=== PATIENT | female | born 1940 | race Caucasian/White ===

== ENCOUNTER 2017-07-30 18:00 | Inpatient (IN) | payer MEDICARE, BC, OTHER ==
[~2017-07-30] VITALS: Ht 165.1 cm; Wt 70.1 kg
[2017-07-30] MEDS ORDERED: SUMA25TA3 PO (18:17)
[2017-07-30] MEDS ORDERED: PROP1TAB29 PO (18:17)
[2017-07-30] MEDS ORDERED: VITA-182 PO (18:17)
[2017-07-30] MEDS ORDERED: MULT1TAB8 PO (18:17)
[2017-07-30] MEDS ORDERED: VITA100072 PO (18:17)
[2017-07-30] MEDS ORDERED: TRIAMT/HCTZ (18:17)
[2017-07-30] MEDS: PROPRANOLOL 20 MG TAB PO SCH (21:00)
--- NOTE | 2017-07-30 21:20 | REPUSA ---
HISTORY: BILAT HIP PAIN. TECHNIQUE: Axial CT imaging of pelvis with sagittal and coronal reformatted imaging, without contrast . DLP= 679.3 mGy-cm. FINDINGS: The examination demonstrates fractures at the right symphysis pubis involving the medial pu bic ramus and medial ischial ramus. No dislocation is seen. Bilateral hip prostheses are in place without evidence of loosening. End no other hip fracture is se en. No significant hematoma, or mass is seen in the pelvis. IMPRESSION: 1. Focal nondisplaced fractures in the right medial pubic and ischial rami at the symphy sis pubis, without dislocation seen. 2. Satisfactory appearance of bilateral hip prostheses with no hip fracture seen. 3. No significant hemorrhagic complication or soft tissue masses seen.
[2017-07-30] MEDS ORDERED: ACETAMINOPHEN TAB 650MG DOSE (2X325MG) PO ONE (22:00)
[2017-07-30] MEDS ORDERED: NS 500 ML IV ONE (23:00)
[2017-07-30 23:22] LABS: BASO % 0.3 % (0.0-1.0); EOS # 0.1 10^3/uL (0.0-0.50); EOS % 0.6 % (0.0-3.0); IMMATURE GRANULOCYTE % 0.4 % (0-0); LYMPH # 1.6 10^3/uL (1.5-4.5); LYMPH % 16.1 % (24.0-44.0); MEAN CORPUSCULAR HEMOGLOBIN 29.2 pg (27.0-33.0); MEAN CORPUSCULAR HGB CONC 34.9 g/dl (32.0-36.5); MEAN CORPUSCULAR VOLUME 83.6 fl (80.0-96.0); MONO # 0.6 10^3/uL (0.0-0.8); MONO % 5.5 % (0.0-5.0); NEUTROPHILS # 7.9 10^3/uL (1.8-7.7); NEUTROPHILS % 77.1 % (36.0-66.0); PLATELET COUNT, AUTOMATED 233 10^3/uL (150-450); RED CELL DISTRIBUTION WIDTH 14.4 % (11.5-14.5); WHITE BLOOD COUNT 10.2 10^3/uL (4.0-10.0)
[2017-07-30 23:30] LABS: ANION GAP 9 MEQ/L (8-16); BLOOD UREA NITROGEN 7 MG/DL (7-18); CALCIUM LEVEL 8.9 MG/DL (8.8-10.2); CARBON DIOXIDE LEVEL 28 MEQ/L (21-32); CHLORIDE LEVEL 97 MEQ/L (98-107); CREATININE FOR GFR 0.74 MG/DL (0.55-1.02); GLOMERULAR FILTRATION RATE > 60.0 (>39); GLUCOSE, FASTING 128 MG/DL (83-110); POTASSIUM SERUM 3.4 MEQ/L (3.5-5.1); SODIUM LEVEL 134 MEQ/L (136-145)
[2017-07-30] MEDS ORDERED: ONDANSETRON 4MG/2ML VIAL (J2405) IV PRN (23:45)
[2017-07-31] VITALS (7 sets, daily range): BP systolic 99–137; BP diastolic 54–69
[2017-07-31] MEDS ORDERED: FEVE380C PO (00:15)
[2017-07-31] MEDS ORDERED: TRIA37.53 PO (00:15)
[2017-07-31] MEDS ORDERED: ARTISOL2 OU (00:15)
[2017-07-31] MEDS ORDERED: VITMTA PO (00:15)
[2017-07-31] MEDS: PERCOCET 5MG/325MG TAB PO PRN ×2 (00:28→21:16)
[2017-07-31] MEDS ORDERED: SUMAtriptan SUCCINATE 25 MG TAB PO PRN (00:30)
[2017-07-31] MEDS ORDERED: POLYVINYL ALCOHOL OPHTH SOLN 15 ML(LIQUITEARS) OU PRN (00:30)
[2017-07-31] MEDS ORDERED: POTASSIUM CHLORIDE 10 MEQ SR TABLET PO ONE (00:30)
--- NOTE | 2017-07-31 01:26 | HPEPDOC ---
General Date of Admission Jul 30, 2017 at 18:01 Attending Physician: SARA MIN MD Chief Complaint The patient is a 77-year-old female admitted with a reason for visit of Syncope. Source: Patient History of Present Illness 77-year-old female with past medical history of hypertension and migraine headaches presented to the ER after she had a mechanical fall. The patient states that she was going down a set of stairs into a garage, when she missed the second last step of the stairs and fell onto her left side. The patient states that she did not have any prodromal symptoms of lightheadedness, dizziness, chest pain, palpitations, abdominal pain, or symptoms of syncope prior to her fall. The patient subsequently presented to the ER for further evaluation. In the ER, imaging revealed focal nondisplaced fractures in the right medial pubic and ischial rami at the symphysis pubis, without dislocation seen. The Orthopedic service was contacted by the ER, and it was recommended that the patient be discharged home and follow-up as an outpatient with orthopedic surgery. However, when the patient got up from the edge of bed and was using the crutches, she had a near syncopal event. According to staff, this only lasted a few seconds, and the patient subsequently awoke with no acute neurological findings. An EKG revealed sinus rhythm with a left bundle branch block which the patient states that she has had for years. She denied any acute complaints of shortness of breath, chest pain, or palpitations. The patient will be admitted to the hospitalist service for observation of syncopal event. Home Medications Scheduled Cholecalciferol (Vitamin D3) 1,000 Unit Cap, 1,000 UNIT PO DAILY, (Reported) Cyanocobalamin (Vitamin B12) 1,000 Mcg Tab, 1,000 MCG PO DAILY, (Reported) Feverfew (Tanacetum Parthenium (Feverfew) 380 Mg Cap, 380 MG PO DAILY, (Reported ) Hydrochlorothiazide W/Triamter (Triamterene/Hydrochloroth 37.5-25 mg) 1 Cap Cap , 1 CAP PO DAILY, (Reported) Multivitamins *SMC STOCKED* (Thera M Plus *SMC STOCKED*) 1 Tab Tab, 1 TAB PO DAILY, (Reported) Propranolol HCl (Propranolol HCl) 20 Mg Tab, 20 MG PO QHS, (Reported) Scheduled PRN Artificial Tears (Artificial Tears 0.1-0.3 %) 1 Sera Sera, 1 DROP OU BID PRN for DRY EYES, (Reported) Sumatriptan Succinate (Sumatriptan Succinate) 25 Mg Tab, 25 MG PO DAILY PRN for MIGRAINE, (Reported) Allergies Coded Allergies: Ciprofloxacin (Verified Allergy, Unknown, 07/30/17) Past Medical History Medical History As noted in HPI. Surgical History Bilateral hip replacement, right shoulder repair, right knee repair, hysterectomy, appendectomy, and tonsillectomy. Family History Significant Family History: No pertinent family hx Social History * Smoker: Denies Alcohol: rarely Drugs: denies Lives at home by herself, ambulates without any assistive devices, is functionally independent at baseline. Review of Symptoms Other systems 10 point review of systems negative unless otherwise specified in HPI. Physical Examination General Exam: Positive: Alert, Cooperative, No Acute Distress ENT Exam: Positive: Atraumatic, Mucous membr. moist/pink Neck Exam: Negative: JVD Chest Exam: Positive: Clear to auscultation, Normal air movement Heart Exam: Positive: Rate Normal, Normal S1, Normal S2 Abdomen Exam: Positive: Soft, Negative: Tenderness Extremity Exam: Positive: Other (mild tenderness to palpation along the contusion on the lateral side of the left leg. Range of motion intact in both hip and knee joints.) Psych Exam: Positive: Oriented x 3 Vital Signs Vital Signs Date Time Temp Pulse Resp B/P (MAP) Pulse Ox O2 Delivery O2 Flow Rate FiO2 07/31/17 00:45 50 16 98 Room Air 07/31/17 00:42 135/64 (87) 07/30/17 18:12 97.6 Laboratory Data Labs 24H Laboratory Tests 2 07/30/17 23:03: Immature Granulocyte % (Auto) 0.4H, White Blood Count 10.2H, Red Blood Count 4.52, Hemoglobin 13.2, Hematocrit 37.8, Mean Corpuscular Volume 83.6, Mean Corpuscular Hemoglobin 29.2, Mean Corpuscular Hemoglobin Concent 34.9, Red Cell Distribution Width 14.4, Platelet Count 233, Neutrophils (%) (Auto) 77.1H, Lymphocytes (%) (Auto) 16.1L, Monocytes (%) (Auto) 5.5H, Eosinophils (%) (Auto) 0.6, Basophils (%) (Auto) 0.3, Neutrophils # (Auto) 7.9H, Lymphocytes # (Auto) 1.6, Monocytes # (Auto) 0.6, Eosinophils # (Auto) 0.1, Basophils # (Auto) 0.0, Immature Granulocyte # (Auto) 0.0, Nucleated Red Blood Cells % (auto) 0.0, Anion Gap 9, Glomerular Filtration Rate > 60.0, Blood Urea Nitrogen 7, Creatinine 0.74, Sodium Level 134L, Potassium Level 3.4L, Chloride Level 97L, Carbon Dioxide Level 28, Calcium Level 8.9 07/30/17 23:11: Bedside Glucose (Misc Panel) 125H CBC/BMP Laboratory Tests 07/30/17 23:03 Red Blood Count 4.52, Mean Corpuscular Volume 83.6, Mean Corpuscular Hemoglobin 29.2, Mean Corpuscular Hemoglobin Concent 34.9, Red Cell Distribution Width 14.4 , Neutrophils (%) (Auto) 77.1 H, Lymphocytes (%) (Auto) 16.1 L, Monocytes (%) ( Auto) 5.5 H, Eosinophils (%) (Auto) 0.6, Basophils (%) (Auto) 0.3, Neutrophils # (Auto) 7.9 H, Lymphocytes # (Auto) 1.6, Monocytes # (Auto) 0.6, Eosinophils # (Auto) 0.1, Basophils # (Auto) 0.0, Calcium Level 8.9 Plan / VTE VTE Prophylaxis Ordered?: Yes Plan Plan Near Syncopal Event likely 2/2 Vasovagal Syncope We will admit to observe on Telemetry EKG notable for NSR with LBBB, no priors available for comparison We will obtain serial troponin markers Orthostatic vitals ordered Pelvic Fracture 2/2 Mechanical Fall No surgical intervention indicated as per Ortho Analgesic medication ordered PT ordered HTN, stable Cont Triamterene/HCTZ Hx of Migraine Headaches Cont current regimen DVT Prophylaxis Lovenox SC The patient will be admitted under the service of Dr. Min, who will begin to follow the patient on 07/31/17 at 7 AM. VALENTINA LANDA MD Jul 31, 2017 01:26
[2017-07-31] MEDS ORDERED: SLF 3 ML SYR IV PRN (04:30)
[2017-07-31] MEDS: SLF 3 ML SYR IV SCH ×3 (05:17→21:16)
[2017-07-31] MEDS: ACETAMINOPHEN TAB 650MG DOSE (2X325MG) PO PRN ×3 (07:27→16:43)
--- NOTE | 2017-07-31 08:12 | ECGEPIP ---
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
[2017-07-31] MEDS: MULTIVITAMINS/MINERALS THERAP 1 TAB PO SCH (09:00)
--- NOTE | 2017-07-31 09:17 | REP ---
AP pelvis: Comparison is the CT of the pelvis earlier this same date. On the comparison CT there is a nondisplaced fracture of the pubic symphysis on the right. This is barely visible on the plain film study and is nondisplaced. No other pelvic fractures are identified. Sacroiliac articulations are unremarkable. There are bilateral total hip arthroplasties. Signed by Jessee Astorga MD 07/31/2017 07:55 A
--- NOTE | 2017-07-31 09:17 | REP ---
Right hip two views: There is no fracture or dislocation. There is a total hip arthroplasty. No calcifications or foreign bodies. On a CT of the pelvis later this same date. There is a nondisplaced fracture of the pubic symphysis on the right. This is not visible on the plain film study of the hip. No Signed by Jessee Astorga MD 07/31/2017 07:56 A
[2017-07-31] MEDS: CYANOCOBALAMIN 500 MCG TAB PO SCH (09:33)
[2017-07-31] MEDS: VITAMIN D 1,000 INTERNATIONAL UNITS TABLET PO SCH (09:33)
[2017-07-31] MEDS: DYAZIDE 37.5/25 CAP (TRIAM/HCTZ) PO SCH (09:33)
[2017-07-31] MEDS: ENOXAPARIN 30 MG/0.3 ML SYR (J1650) SC SCH (09:34)
--- NOTE | 2017-07-31 10:19 | IPNPDOC ---
Text Note Date of Service The patient was seen on 07/31/17. NOTE Subjective: No complaints overnight except for some hip pain. denies any dizziness or light headedness, however orthostatic bps were positive Physical exam: Vitals : As below. General Exam: Positive: Alert, Cooperative, No Acute Distress ENT Exam: Positive: Atraumatic, Mucous membr. moist/pink Neck Exam: Negative: JVD Chest Exam: Positive: Clear to auscultation, Normal air movement Heart Exam: Positive: Rate Normal, Normal S1, Normal S2, systolic murmur. Abdomen Exam: Positive: Soft, Negative: Tenderness Extremity Exam: Positive: Other (mild tenderness to palpation along the contusion on the lateral side of the left leg. Range of motion intact in both hip and knee joints.) Psych Exam: Positive: Oriented x 3 Labs and radiology : As below. Assessment and Plan: 77 yr old female with non displaced fractures of the right pubic and ischeal rami after a mechanical fall was admitted to the hospital for a presyncopal event in the ED. Presyncope: likely 2/2 Vasovagal Syncope However orthostatic bps are also positive . will give 500 cc ivf. Telemetry does not show any arrhythmias EKG notable for NSR with LBBB, no priors available for comparison serial troponin markers echo. Pelvic Fracture 2/2 Mechanical Fall No surgical intervention indicated as per Ortho Analgesic medication ordered PT ordered HTN, stable Cont Triamterene/HCTZ Hx of Migraine Headaches Cont current regimen DVT Prophylaxis Lovenox SC VS,Fishbone, I+O VS, Fishbone, I+O Laboratory Tests 07/30/17 23:03 Red Blood Count 4.52, Mean Corpuscular Volume 83.6, Mean Corpuscular Hemoglobin 29.2, Mean Corpuscular Hemoglobin Concent 34.9, Red Cell Distribution Width 14.4 , Neutrophils (%) (Auto) 77.1 H, Lymphocytes (%) (Auto) 16.1 L, Monocytes (%) ( Auto) 5.5 H, Eosinophils (%) (Auto) 0.6, Basophils (%) (Auto) 0.3, Neutrophils # (Auto) 7.9 H, Lymphocytes # (Auto) 1.6, Monocytes # (Auto) 0.6, Eosinophils # (Auto) 0.1, Basophils # (Auto) 0.0, Calcium Level 8.9, Total Creatine Kinase 130 Vital Signs Date Time Temp Pulse Resp B/P (MAP) Pulse Ox O2 Delivery O2 Flow Rate FiO2 07/31/17 05:17 20 07/31/17 04:44 98.7 69 124/64 (84) 98 Room Air SARA PRESCOTT MD Jul 31, 2017 06:11
[2017-07-31] MEDS ORDERED: SODIUM CHLORIDE 0.9% 1000 ML IV ONE (10:30)
[2017-07-31] MEDS: PROPRANOLOL 20 MG TAB PO SCH (21:12)
[2017-07-31] MEDS: DOCUSATE SODIUM 100 MG CAP PO SCH (21:13)
[2017-08-01] VITALS (10 sets, daily range): BP systolic 101–138; BP diastolic 55–72
--- NOTE | 2017-08-01 05:46 | ECHO ---
DATE OF PROCEDURE: 07/31/2017 REFERRING PHYSICIAN: Dr. Juana Min. INDICATION: Syncope and heart murmur. Patient has left bundle branch block. HEIGHT: 65 inches. WEIGHT: 154 pounds. DIMENSIONS: IVS: 1.0 LV: 45.1 LVPW: 1.2 LA: 2.5 Aorta: 2.7 FINDINGS: The study is of fair technical quality with difficult visualization. Left ventricle is of normal size and overall hyperdynamic contractility. I do not appreciate a typical septal wall motion abnormality associated with left bundle branch block. Right ventricle does not appear enlarged. Both atria appear grossly normal but the visualization was poor. There appears to be an echodensity in left atrium that was very poorly seen. I cannot rule out that this is just an artifact caused by intense shadowing of heavily calcified mitral valve but it potentially could represent also left atrial thrombus or mass. Aortic valve is tricuspid. There are some calcifications, but no significant restriction of cusp mobility. There are heavy calcification in the mitral valve itself and also at the mitral annulus. I cannot comment on mobility of the leaflets. Tricuspid valve appears normal. Pulmonic valve was not well seen. No pericardial effusion is noted. Inferior vena cava is normal size. Aortic root, aortic arch and abdominal aorta appear normal. Doppler interrogation of aortic valve reveals minimal stenosis (mean gradient 9 mmHg) and mild to moderate insufficiency. Pressure half-time of AI jet is 570 milliseconds. There is no significant mitral insufficiency, but there is mild mitral stenosis. Peak gradient across the valve is 10 and mean gradient 4 mmHg. There is trace tricuspid insufficiency. Calculated pulmonary artery pressure is in 30s corresponding to mild pulmonary hypertension. Mitral inflow pattern and tissue Doppler imaging of mitral annulus reveal grade 1 diastolic dysfunction. CONCLUSIONS: 1. Study is of fair technical quality. 2. Normal LV size with normal LV systolic function and grade 1 diastolic dysfunction. 3. Very prominent aortic sclerosis with trivial stenosis and mild to moderate insufficiency. 4. Heavily calcified mitral valve with limited visualization of the leaflet themselves and functionally no significant insufficiency and mild stenosis. 5. Normal central venous pressure and likely mild pulmonary hypertension. 6. Poorly visualized mass in left atrium. Cannot completely rule out that this represents artifact caused by prominent mitral calcifications. COMMENTS: Subacute bacterial endocarditis (SBE) prophylaxis not recommended. Depending on the patient's condition, I would advocate to pursue transesophageal echocardiogram to have a better look at left atrium. [facility]
[2017-08-01] MEDS: SLF 3 ML SYR IV SCH ×3 (05:57→21:08)
[2017-08-01] MEDS: ACETAMINOPHEN TAB 650MG DOSE (2X325MG) PO PRN (05:58)
[2017-08-01] MEDS: MULTIVITAMINS/MINERALS THERAP 1 TAB PO SCH (08:08)
[2017-08-01] MEDS: ENOXAPARIN 30 MG/0.3 ML SYR (J1650) SC SCH (09:22)
[2017-08-01] MEDS: VITAMIN D 1,000 INTERNATIONAL UNITS TABLET PO SCH (09:22)
[2017-08-01] MEDS: DOCUSATE SODIUM 100 MG CAP PO SCH ×2 (09:22→21:07)
[2017-08-01] MEDS: CYANOCOBALAMIN 500 MCG TAB PO SCH (09:22)
[2017-08-01 09:35] LABS: MEAN CORPUSCULAR HEMOGLOBIN 28.5 pg (27.0-33.0); MEAN CORPUSCULAR HGB CONC 33.3 g/dl (32.0-36.5); MEAN CORPUSCULAR VOLUME 85.4 fl (80.0-96.0); PLATELET COUNT, AUTOMATED 184 10^3/uL (150-450); RED CELL DISTRIBUTION WIDTH 14.6 % (11.5-14.5); WHITE BLOOD COUNT 7.4 10^3/uL (4.0-10.0)
[2017-08-01 09:57] LABS: ANION GAP 6 MEQ/L (8-16); BLOOD UREA NITROGEN 7 MG/DL (7-18); CALCIUM LEVEL 8.8 MG/DL (8.8-10.2); CARBON DIOXIDE LEVEL 30 MEQ/L (21-32); CHLORIDE LEVEL 97 MEQ/L (98-107); GLOMERULAR FILTRATION RATE > 60.0 (>39); GLUCOSE, FASTING 105 MG/DL (83-110); POTASSIUM SERUM 3.7 MEQ/L (3.5-5.1); SODIUM LEVEL 133 MEQ/L (136-145)
[2017-08-01] MEDS: PERCOCET 5MG/325MG TAB PO PRN ×2 (11:03→21:13)
--- NOTE | 2017-08-01 11:41 | IPNPDOC ---
Text Note Date of Service The patient was seen on 08/01/17. NOTE Subjective: No complaints overnight except for some hip pain. denies any dizziness or light headedness, orthostatic bps were negative this am , TTE showed abnormality so will need DARLIN Physical exam: Vitals : As below. General Exam: Positive: Alert, Cooperative, No Acute Distress ENT Exam: Positive: Atraumatic, Mucous membr. moist/pink Neck Exam: Negative: JVD Chest Exam: Positive: Clear to auscultation, Normal air movement Heart Exam: Positive: Rate Normal, Normal S1, Normal S2, systolic murmur. Abdomen Exam: Positive: Soft, Negative: Tenderness Extremity Exam: Positive: Other (mild tenderness to palpation along the contusion on the lateral side of the left leg. Range of motion intact in both hip and knee joints.) Psych Exam: Positive: Oriented x 3 Labs and radiology : As below. Assessment and Plan: 77 yr old female with non displaced fractures of the right pubic and ischeal rami after a mechanical fall was admitted to the hospital for a presyncopal event in the ED. Presyncope: due to orthostatic hypotension and possible vasovagal syncope.However has an abnormal TTE. Telemetry does not show any arrhythmias EKG notable for NSR with LBBB, no priors available for comparison serial troponin markers negative echo showed possible mass in left atrium will need DARLIN. Have spoken with Dr Lanier. Pelvic Fracture 2/2 Mechanical Fall No surgical intervention indicated as per Ortho Analgesic medication ordered PT ordered HTN, stable Cont Triamterene/HCTZ Hx of Migraine Headaches Cont current regimen DVT Prophylaxis Lovenox SC VS,Fishbone, I+O VS, Fishbone, I+O Laboratory Tests 08/01/17 09:23 Red Blood Count 4.11, Mean Corpuscular Volume 85.4, Mean Corpuscular Hemoglobin 28.5, Mean Corpuscular Hemoglobin Concent 33.3, Red Cell Distribution Width 14.6 H, Calcium Level 8.8 Vital Signs Date Time Temp Pulse Resp B/P (MAP) Pulse Ox O2 Delivery O2 Flow Rate FiO2 08/01/17 11:03 16 08/01/17 07:50 78 117/72 (87) 08/01/17 04:00 98.9 96 Room Air SARA PRESCOTT MD Aug 01, 2017 11:41
[2017-08-01] MEDS ORDERED: MORPHINE 2 MG/ML 1ML SYRINGE IV ONE (17:00)
[2017-08-01] MEDS: PROPRANOLOL 20 MG TAB PO SCH (21:00)
[2017-08-02] VITALS (12 sets, daily range): BP systolic 95–146; BP diastolic 52–80
[2017-08-02] MEDS: SLF 3 ML SYR IV SCH ×3 (06:00→21:25)
[2017-08-02] MEDS: ENOXAPARIN 30 MG/0.3 ML SYR (J1650) SC SCH (09:00)
[2017-08-02] MEDS: DYAZIDE 37.5/25 CAP (TRIAM/HCTZ) PO SCH (09:00)
[2017-08-02] MEDS: MULTIVITAMINS/MINERALS THERAP 1 TAB PO SCH (09:00)
[2017-08-02] MEDS: DOCUSATE SODIUM 100 MG CAP PO SCH ×2 (09:07→21:24)
[2017-08-02] MEDS: CYANOCOBALAMIN 500 MCG TAB PO SCH (09:08)
[2017-08-02] MEDS: VITAMIN D 1,000 INTERNATIONAL UNITS TABLET PO SCH (09:08)
[2017-08-02] MEDS: PERCOCET 5MG/325MG TAB PO PRN ×3 (09:15→21:24)
--- NOTE | 2017-08-02 11:08 | IPNPDOC ---
Text Note Date of Service The patient was seen on 08/02/17. NOTE Subjective: No complaints overnight except for some hip pain. denies any dizziness or light headedness, TTE showed abnormality so will need TEEto be done today. Physical exam: Vitals : As below. General Exam: Positive: Alert, Cooperative, No Acute Distress ENT Exam: Positive: Atraumatic, Mucous membr. moist/pink Neck Exam: Negative: JVD Chest Exam: Positive: Clear to auscultation, Normal air movement Heart Exam: Positive: Rate Normal, Normal S1, Normal S2, systolic murmur. Abdomen Exam: Positive: Soft, Negative: Tenderness Extremity Exam: Positive: Other (mild tenderness to palpation along the contusion on the lateral side of the left leg. Range of motion intact in both hip and knee joints.) Psych Exam: Positive: Oriented x 3 Labs and radiology : As below. Assessment and Plan: 77 yr old female with non displaced fractures of the right pubic and ischeal rami after a mechanical fall was admitted to the hospital for a presyncopal event in the ED. Presyncope: due to orthostatic hypotension and possible vasovagal syncope.However has an abnormal TTE. Telemetry does not show any arrhythmias EKG notable for NSR with LBBB, no priors available for comparison serial troponin markers negative echo showed possible mass in left atrium will need DARLIN. Have spoken with Dr Lanier. Pelvic Fracture 2/2 Mechanical Fall No surgical intervention indicated as per Ortho Analgesic medication ordered PT ordered HTN, stable Cont Triamterene/HCTZ Hx of Migraine Headaches Cont current regimen with propranolol. DVT Prophylaxis Lovenox SC VS,Fishbone, I+O VS, Fishbone, I+O Vital Signs Date Time Temp Pulse Resp B/P (MAP) Pulse Ox O2 Delivery O2 Flow Rate FiO2 08/02/17 10:00 109 126/66 (86) 08/02/17 09:15 16 08/02/17 06:00 97.4 96 Room Air I&O- Last 24 Hours up to 6 AM 08/03/17 06:00 Intake Total 240 ml Output Total 250 ml Balance -10 ml SARA PRESCOTT MD Aug 02, 2017 11:08
[2017-08-02] MEDS ORDERED: MIDAZOLAM INJ 2 MG/2 ML VIAL (J2250) As Ordered ONE (18:22)
[2017-08-02] MEDS ORDERED: LIDOCAINE 2% INJ 100 MG/5 ML SDV (FOR ANES.) As Ordered ONE (18:23)
[2017-08-02] MEDS ORDERED: PROPOFOL 200 MG/20 ML VIAL As Ordered ONE (18:23)
[2017-08-02] MEDS ORDERED: LR 1,000 ML IV SCH (19:00)
[2017-08-02] MEDS ORDERED: fentaNYL 100 MCG/2 ML INJECTION (J3010) IV PRN (19:00)
--- NOTE | 2017-08-02 19:23 | T-ECHO ---
DATE OF PROCEDURE: 08/02/2017 REFERRING PHYSICIAN: Dr. Juana Min PHYSICIAN PERFORMING TE: Dr. Aries Lanier INDICATION: Left atrial mass identified on transthoracic echocardiogram. PREPROCEDURE DIAGNOSIS: Left atrial mass on transthoracic echocardiogram. POSTPROCEDURE DIAGNOSIS: No intracardiac masses. PROCEDURE PERFORMED: Transesophageal echocardiogram without saline contrast. PERFORMED BY: Aries Lanier MD MODELING MANAGER: None. ANESTHESIA: Propofol per [employer] SALES SPECIALIST. COMPLICATIONS: None. PROCEDURE DESCRIPTION: Rhythm was sinus. Esophageal intubation was accomplished with some difficulty due to protrusion of the anterior cervical bodies into the lower pharynx. Esophageal intubation was accomplished by Dr. Lanier using a Gutierrez multiplane two-dimensional face ray transesophageal echocardiogram probe. The left and right ventricles appear normal in size and systolic function and no regional wall motion abnormality of the left ventricle. Atrial septum was intact anatomically and by color-flow Doppler. No masses or thrombi were seen within the atria or their appendages. Mild focal mitral valve prolapse is present in multiple scallops involving the mitral leaflets. Moderate mitral annular calcification. No flail segments or broken cordae. Moderate mitral regurgitation. Pulmonary vein flow and left upper pulmonary vein was normal. Aortic valve was three-cuspid and had moderate focal thickening and focal calcific deposits. Mild aortic regurgitation. No aortic stenosis. No mitral stenosis. Tricuspid leaflets appeared structurally normal and mild tricuspid regurgitation is present. Pulmonic valve appeared normal and had mild pulmonic regurgitation. No pericardial effusion. Distal aortic arch and descending thoracic aorta showed mild atherosclerotic plaque. CONCLUSIONS: 1. No intracardiac masses or thrombi. 2. Mitral valve prolapse, moderate annular calcification. Moderate mitral regurgitation. No flail segments. No mitral stenosis. 3. Moderate aortic valve sclerosis of a three-cuspid aortic valve. Aortic valve did not appear stenotic. Milder aortic regurgitation. 4. Normal Left ventricle size and systolic function. Normal LV regional wall motion. 5. Mild atherosclerotic plaque in the distal aortic and descending thoracic aorta.
[2017-08-02] MEDS: PROPRANOLOL 20 MG TAB PO SCH (21:00)
[2017-08-02] MEDS ORDERED: MORPHINE 2 MG/ML 1ML SYRINGE IV ONE (23:15)
[2017-08-03] VITALS (8 sets, daily range): BP systolic 82–129; BP diastolic 50–64
[2017-08-03] MEDS: SLF 3 ML SYR IV SCH ×3 (05:01→21:29)
[2017-08-03] MEDS ORDERED: PERCOCET PO (06:48)
--- NOTE | 2017-08-03 07:51 | REP ---
AP pelvis: Comparison is 07/30/2017. There is a nondisplaced fracture of the pubic symphysis on the right, unchanged. No other pelvic fractures are identified. There are bilateral total hip arthroplasties. Signed by Jessee Astorga MD 08/03/2017 07:43 A
[2017-08-03] MEDS ORDERED: tiZANidine 4 MG TAB PO ONE (08:30)
[2017-08-03] MEDS ORDERED: PERCOCET 5MG/325MG TAB PO PRN (08:30)
[2017-08-03] MEDS: ENOXAPARIN 30 MG/0.3 ML SYR (J1650) SC SCH (08:53)
[2017-08-03] MEDS: DOCUSATE SODIUM 100 MG CAP PO SCH ×2 (08:54→20:21)
[2017-08-03] MEDS: CYANOCOBALAMIN 500 MCG TAB PO SCH (08:55)
[2017-08-03] MEDS: VITAMIN D 1,000 INTERNATIONAL UNITS TABLET PO SCH (08:55)
[2017-08-03] MEDS: DYAZIDE 37.5/25 CAP (TRIAM/HCTZ) PO SCH (08:56)
[2017-08-03] MEDS: PERCOCET 5MG/325MG TAB PO PRN ×3 (08:58→19:43)
[2017-08-03] MEDS: LIDOCAINE 5% (LIDODERM) PATCH TD SCH (09:00)
[2017-08-03] MEDS: MULTIVITAMINS/MINERALS THERAP 1 TAB PO SCH (09:00)
[2017-08-03] MEDS ORDERED: NS 250 ML IV ONE (10:45)
--- NOTE | 2017-08-03 12:23 | IPNPDOC ---
Text Note Date of Service The patient was seen on 08/03/17. NOTE Subjective: Pateint had a bed night , After the DARLIN patient had increased hip pain and at the middle of the night she tried to get out of bed to go to bathroom she developed excrutiating pain requiring morphine and heard a click sound on that side. Had repeat pelvic xray did not show anything different , could hardly work with PT this morning. So discharge was cancelled. Physical exam: Vitals : As below. General Exam: Positive: Alert, Cooperative, No Acute Distress ENT Exam: Positive: Atraumatic, Mucous membr. moist/pink Neck Exam: Negative: JVD Chest Exam: Positive: Clear to auscultation, Normal air movement Heart Exam: Positive: Rate Normal, Normal S1, Normal S2, systolic murmur. Abdomen Exam: Positive: Soft, Negative: Tenderness Extremity Exam: Positive: Other (mild tenderness to palpation along the contusion on the lateral side of the left leg. Range of motion intact in both hip and knee joints.) Psych Exam: Positive: Oriented x 3 Labs and radiology : As below. Assessment and Plan: 77 yr old female with non displaced fractures of the right pubic and ischeal rami after a mechanical fall was admitted to the hospital for a presyncopal event in the ED. Presyncope: due to orthostatic hypotension and possible vasovagal syncope.However has an abnormal TTE. Telemetry does not show any arrhythmias EKG notable for NSR with LBBB, no priors available for comparison serial troponin markers negative echo showed possible mass in left atrium.DARLIN was negative. Pelvic Fracture 2/2 Mechanical Fall No surgical intervention indicated as per Ortho Analgesic medication ordered and muscle relaxant. PT HTN, stable hypotension after pain medications give 250 NS will hold propanol tonight. Hx of Migraine Headaches Cont current regimen DVT Prophylaxis Lovenox SC VS,Fishbone, I+O VS, Fishbone, I+O Vital Signs Date Time Temp Pulse Resp B/P (MAP) Pulse Ox O2 Delivery O2 Flow Rate FiO2 08/03/17 10:00 98.2 54 18 82/50 (61) 99 Room Air I&O- Last 24 Hours up to 6 AM 08/04/17 06:00 Intake Total 0 ml Output Total 200 ml Balance -200 ml SARA PRESCOTT MD Aug 03, 2017 12:22
[2017-08-03] MEDS ORDERED: **NOTE PATIENT COMMENT** MISC XX SCH (21:00)
[2017-08-04 02:00] VITALS: BP 166/100
[2017-08-04] MEDS: SLF 3 ML SYR IV SCH (05:03)
[2017-08-04 06:00] VITALS: BP 127/62
[2017-08-04] MEDS: CYANOCOBALAMIN 500 MCG TAB PO SCH (08:15)
[2017-08-04] MEDS: DOCUSATE SODIUM 100 MG CAP PO SCH (08:15)
[2017-08-04] MEDS: VITAMIN D 1,000 INTERNATIONAL UNITS TABLET PO SCH (08:15)
[2017-08-04] MEDS: PERCOCET 5MG/325MG TAB PO PRN ×2 (08:16→13:23)
[2017-08-04] MEDS: ENOXAPARIN 30 MG/0.3 ML SYR (J1650) SC SCH (08:17)
[2017-08-04] MEDS: LIDOCAINE 5% (LIDODERM) PATCH TD SCH (09:00)
[2017-08-04] MEDS: MULTIVITAMINS/MINERALS THERAP 1 TAB PO SCH (09:00)
[2017-08-04] MEDS: DYAZIDE 37.5/25 CAP (TRIAM/HCTZ) PO SCH (09:00)
[2017-08-08] MEDS ORDERED: OXYC1TAB23 PO (11:42)
--- NOTE | 2017-08-08 21:16 | DSES ---
DATE OF ADMISSION: 07/31/2017 DATE OF DISCHARGE: 08/04/2017 DISCHARGE DIAGNOSES: 1. Nondisplaced fracture of the right medial pubis and ischial ramus of the symphysis pubis. 2. Presyncopal episode due to orthostatic hypotension and vasovagal syncope. 3. Hypertension. 4. History of migraines. DISCHARGE MEDICATIONS: - oxycodone/acetaminophen 5/325 one tablet by mouth every 4 hours as needed for pain - artificial tears one drop both eyes twice a day as needed for dry eyes - cholecalciferol 1000 units by mouth daily - cyanocobalamin 1000 mcg by mouth daily - feverfew 80 mg by mouth daily - hydrochlorothiazide triamterine 337.5/25 one capsule by mouth daily - multivitamin one tablet by mouth daily - propranolol 20 mg at bedtime - sumatriptan 25 mg by mouth daily as needed for migraine HOSPITAL COURSE: This is a 77-year-old female who came to the emergency room status post mechanical fall and was found to have nondisplaced pelvic ramus fracture. Her pain was controlled in the emergency room and she was getting ready for being discharged from the emergency room to followup with outpatient physical therapy (PT), but while she stood up to the side of the bed, she suddenly had a presyncopal event which lasted for a few seconds. EKG at that time revealed sinus rhythm with left bundle branch block so the patient was admitted to the hospital for evaluation for syncopal event. Patient was monitored in telemetry without any cardiac arrhythmias. Patient had an echocardiogram done which was read as a possible mass in the left atrium, so patient underwent a transesophageal echocardiogram (DARLIN) which did not show any mass. Patient had normal ejection fraction, has grade 1 diastolic dysfunction, sclerotic aortic valves with trivial stenosis, mild to moderate insufficiency, heavily calcified mitral valve with no significant mitral stenosis or mitral insufficiency, possibly mild pulmonary hypertension. Patient had worsening of pain after her DARLIN when she had to lie in a stretcher for a while, so she could not participate with physical therapy. Patient's pain medications were increased and patient did much better after that and on the day of discharge, patient's vital signs were stable, did not have any complaints, functionally was close to baseline. Patient was seen by physical therapy and was cleared for discharge to continue with outpatient physical therapy. PHYSICAL EXAMINATION: VITAL SIGNS: Temperature 97.4, pulse 78, respiratory rate 18, blood pressure 127/62, pulse oximetry 97% in room air. GENERAL: Patient awake, alert, oriented times three, sitting up in bed, in no acute distress. HEENT: Normocephalic, atraumatic. Moist mucous membranes. Anicteric eyes. CHEST: Clear to auscultation. CARDIOVASCULAR: S1, S2, regular. No rub, murmur, or gallop. ABDOMEN: Soft, nontender. Bowel sounds present. EXTREMITIES: No edema. LABORATORY DATA: WBC 6.4, hemoglobin 11.7, platelets 184. Sodium 133, potassium 3.7, chloride 97, bicarbonate 30, BUN 7, creatinine 0.8. Cardiaca enzymes are negative. DISPOSITION: Patient is discharged home in a stable condition. DISCHARGE INSTRUCTIONS: Patient to followup with primary care provider in 1 week. Diet as tolerated. Activity as tolerated. Patient to followup with outpatient physical therapy.
== END 2017-08-04 13:25 | disposition home or self-care (01) | DRG 312 ==
LOC: EDBD 18:00 → M ED 18:00 → M ED INP 18:01 → M ICU 07-31 04:19 → OBSVTOIN 07-31 08:40 → M MSPAV 08-01 14:29
PROVIDERS: ADMIT Internal Medicine; ATTEND Internal Medicine Nephrology
DX: I95.1 Orthostatic hypotension (principal); S32.82XA Multiple fractures of pelvis without disruption of pelvic ring, initial encounter for closed fracture; I10 Essential (primary) hypertension; G43.909 Migraine, unspecified, not intractable, without status migrainosus; Z79.899 Other long term (current) drug therapy; Z88.1 Allergy status to other antibiotic agents; Z96.643 Presence of artificial hip joint, bilateral; Z90.710 Acquired absence of both cervix and uterus; W10.8XXA Fall (on) (from) other stairs and steps, initial encounter; Y92.015 Private garage of single-family (private) house as the place of occurrence of the external cause; Y93.01 Activity, walking, marching and hiking; Y99.9 Unspecified external cause status

== ENCOUNTER 2019-02-01 15:43 | Emergency (ER) | payer MEDICARE, BC, OTHER ==
[~2019-02-01] VITALS: Ht 165.1 cm; Wt 64.2 kg
[~2019-02-01 15:43] MED LIST: ARTISOL2 OU; FEVE380C PO; MULT1TAB8 PO; OXYC1TAB23 PO; PERCOCET PO; PROP20TA72 PO; SUMA25TA3 PO; TRIA37.53 PO; TRIAMT/HCTZ; VITA-182 PO; VITA100018 PO; VITMTA PO
[2019-02-01] MEDS ORDERED: NS 1,000 ML IV ONE (16:15)
[2019-02-01 17:06] LABS: BASO % 0.7 % (0.0-1.0); EOS # 0.1 10^3/uL (0.0-0.50); EOS % 1.6 % (0.0-3.0); HEMATOCRIT 38.3 % (36.0-47.0); LYMPH # 1.6 10^3/uL (1.5-4.5); LYMPH % 26.1 % (24.0-44.0); MEAN CORPUSCULAR HEMOGLOBIN 27.5 pg (27.0-33.0); MEAN CORPUSCULAR HGB CONC 33.9 g/dl (32.0-36.5); MEAN CORPUSCULAR VOLUME 81.1 fl (80.0-96.0); MONO # 0.6 10^3/uL (0.0-0.8); MONO % 9.3 % (0.0-5.0); NEUTROPHILS # 3.8 10^3/uL (1.8-7.7); PLATELET COUNT, AUTOMATED 306 10^3/uL (150-450); RED BLOOD COUNT 4.72 10^6/uL (4.00-5.40); WHITE BLOOD COUNT 6.1 10^3/uL (4.0-10.0)
[2019-02-01 17:30] LABS: ALBUMIN 3.9 GM/DL (3.2-5.2); ALT/SGPT 17 U/L (12-78); BILIRUBIN,DIRECT 0.2 MG/DL (0.0-0.2); BILIRUBIN,TOTAL 0.7 MG/DL (0.2-1.0); BLOOD UREA NITROGEN 10 MG/DL (7-18); CALCIUM LEVEL 8.9 MG/DL (8.8-10.2); CARBON DIOXIDE LEVEL 28 MEQ/L (21-32); CHLORIDE LEVEL 99 MEQ/L (98-107); CREATININE FOR GFR 0.72 MG/DL (0.55-1.30); GLOMERULAR FILTRATION RATE > 60.0 (>39); GLUCOSE, FASTING 80 MG/DL (70-100); LIPASE 219 U/L (73-393); POTASSIUM SERUM 3.9 MEQ/L (3.5-5.1); SODIUM LEVEL 135 MEQ/L (136-145); TOTAL PROTEIN 7.3 GM/DL (6.4-8.2)
[2019-02-01] MEDS ORDERED: ISOVUE-370 76% 100ML VIAL (Q9967) As Ordered ONE (17:36)
--- NOTE | 2019-02-01 18:40 | REPVR ---
EXAM: CT Abdomen and Pelvis With Contrast EXAM DATE/TIME: 02/01/2019 4:13 PM CLINICAL HISTORY: 78 years old, female; Abdominal pain; Other: Llq; Additional info: Llq pain TECHNIQUE: Imaging protocol: Axial computed tomography images of the abdomen and pelvis with intravenous contrast. Coronal and sagittal reformatted images were created and reviewed. Radiation optimization: All CT scans at this facility use at least one of these dose optimization techniques: automated exposure control; mA and/or kV adjustment per patient size (includes targeted exams where dose is matched to clinical indication); or iterative reconstruction. Contrast material: ISOVUE 370; Contrast volume: 100 ml; Contrast route: IV; COMPARISON: CT Pelvis without contrast 07/30/2017 8:09 PM FINDINGS: Lungs: Thin reticular opacities seen at both lung bases. ABDOMEN: Liver: Normal. No mass. Gallbladder and bile ducts: Normal. No calcified stones. No ductal dilation. Pancreas: Normal. No ductal dilation. Spleen: Normal. No splenomegaly. Adrenals: Normal. No mass. Kidneys and ureters: Normal. No hydronephrosis. Stomach and bowel: Generalized colonic diverticulosis. Very mild pericolonic inflammatory change noted of the distal descending colon. No abscess. No perforation. Appendix: Not seen as a separate structure. PELVIS: Bladder: Unremarkable as visualized. Reproductive: Uterus and ovaries not seen. ABDOMEN and PELVIS: Intraperitoneal space: Normal. No free air. No significant fluid collection. Bones/joints: Beam hardening artifact from bilateral hip prostheses degrades the images of the inferior aspect of the pelvis. Deformity of the right superior and inferior pubic rami indicate previous fracture. Compression fracture of the L3 vertebral body with 30% loss of height of the vertebral body. No retropulsed fragments. Grade 1 spondylolisthesis at L4-5 with 6 mm of retrolisthesis of L5 with respect to L4. Facet arthropathy present in the lower lumbar spine. Soft tissues: Unremarkable. Vasculature: Normal. No abdominal aortic aneurysm. Lymph nodes: Normal. No enlarged lymph nodes. IMPRESSION: 1. Very mild diverticulitis suggestive of distal descending colon. No abscess. No perforation. Generalize colonic diverticulosis. Electronically signed by: Chloé Augustine On 02/01/2019 18:40:28 PM
[2019-02-01 19:24] VITALS: BP 184/74
[2019-02-01] MEDS ORDERED: AUGM875T28 PO (19:24)
[2019-02-01] MEDS ORDERED: AUGMENTIN 875 MG TAB PO ONE (19:30)
== END 2019-02-01 19:37 | disposition home or self-care (01) ==
LOC: M ED 15:43
DX: K57.32 Diverticulitis of large intestine without perforation or abscess without bleeding (principal); I10 Essential (primary) hypertension; R51 Headache; M41.9 Scoliosis, unspecified; Z85.42 Personal history of malignant neoplasm of other parts of uterus; Z88.1 Allergy status to other antibiotic agents; Z79.899 Other long term (current) drug therapy
CPT/HCPCS: 74177; 80048; 80076; 81001; 83690; 85025; 96360; 96361; 99284; Q9967

== ENCOUNTER → 2019-04-04 | Outpatient (CLI) | payer MEDICARE, BC, OTHER ==
[~2019-04-04] MED LIST changes: +AUGM875T28 PO; +GASTROGRAFIN SOLUTION 30ML (Q9963) As Ordered ONE; +ISOVUE-370 76% 100ML VIAL (Q9967) As Ordered ONE
--- NOTE | 2019-04-04 21:02 | REP ---
CT of the abdomen pelvis without and with IV contrast and with bowel contrast: Comparison is 2018. The patient has history of endometrial carcinoma and skin carcinoma. The patient has an appendectomy and hysterectomy. The visualized lung cantu are unremarkable except for curvilinear parenchymal scarring in the left lower lobe. This is unchanged. The hepatic parenchyma, gallbladder, pancreas and spleen are unremarkable. The adrenals, kidneys and abdominal aorta are unremarkable. There is no retroperitoneal adenopathy or mass. Pelvis: There are bilateral hip arthroplasties resulting in beam hardening artifact obscuring the findings in the pelvis. Scanning is repeated with beam-hardening artifact correction cell for without much improvement. No ascites or adenopathy is identified. There are occasional diverticula. A in the sigmoid colon without CT evidence of diverticulitis. There is grade 1 compression of the L3 superior endplate. This is unchanged. 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 This is unchanged. There are old healed fractures of the pubic symphysis bilaterally. Impression: There has been no significant interval change. There is no bowel distension or obstruction. There is no ascites or adenopathy. There is diverticulosis without diverticulitis. Electronically Signed by Jessee Astorga MD 04/04/2019 08:53 P
== END ==
LOC: M RAD 16:17
DX: K57.90 Diverticulosis of intestine, part unspecified, without perforation or abscess without bleeding (principal)
CPT/HCPCS: 74178; Q9963; Q9967

== ENCOUNTER 2020-03-28 19:37 | Emergency (ER) | payer MEDICARE, BC, OTHER ==
[~2020-03-28] VITALS: Ht 167.6 cm; Wt 63.6 kg
[~2020-03-28 19:37] MED LIST changes: -GASTROGRAFIN SOLUTION 30ML (Q9963) As Ordered ONE; -ISOVUE-370 76% 100ML VIAL (Q9967) As Ordered ONE
[2020-03-28 21:14] LABS: BASO % 0.3 % (0.0-1.0); EOS % 0.5 % (0.0-3.0); HEMATOCRIT 37.9 % (36.0-47.0); HEMOGLOBIN 12.5 g/dl (12.0-15.5); LYMPH % 31.8 % (24.0-44.0); MEAN CORPUSCULAR HEMOGLOBIN 27.7 pg (27.0-33.0); MONO # 0.7 10^3/uL (0.0-0.8); MONO % 11.3 % (0.0-5.0); NEUTROPHILS # 3.5 10^3/uL (1.5-8.5); NEUTROPHILS % 55.9 % (36.0-66.0); PLATELET COUNT, AUTOMATED 244 10^3/uL (150-450); RED BLOOD COUNT 4.51 10^6/uL (4.00-5.40); WHITE BLOOD COUNT 6.2 10^3/uL (4.0-10.0)
[2020-03-28] MEDS ORDERED: TURM500C5 PO (21:34)
[2020-03-28] MEDS ORDERED: COQ-100C5 PO (21:34)
[2020-03-28] MEDS ORDERED: METO1TAB32 PO (21:34)
[2020-03-28 21:38] LABS: ALBUMIN 3.8 GM/DL (3.2-5.2); BILIRUBIN,DIRECT 0.2 MG/DL (0.0-0.2); BILIRUBIN,TOTAL 0.5 MG/DL (0.2-1.0); TOTAL PROTEIN 6.9 GM/DL (6.4-8.2)
[2020-03-28] MEDS ORDERED: ISOVUE-370 76% 100ML VIAL As Ordered ONE (21:54)
--- NOTE | 2020-03-28 22:16 | REPVR ---
PROCEDURE INFORMATION: Exam: CT Abdomen And Pelvis With Contrast Exam date and time: 03/28/2020 9:58 PM Age: 80 years old Clinical indication: Abdominal pain; Generalized; Additional info: Abd pain, generalized, diarrhea, HX divertic TECHNIQUE: Imaging protocol: Computed tomography of the abdomen and pelvis with intravenous contrast. Radiation optimization: All CT scans at this facility use at least one of these dose optimization techniques: automated exposure control; mA and/or kV adjustment per patient size (includes targeted exams where dose is matched to clinical indication); or iterative reconstruction. Contrast material: ISOVUE 370; Contrast volume: 100 ml; Contrast route: INTRAVENOUS (IV); COMPARISON: CT ABD PELVIS W/O FOL BY [facility] 2019-04-04 17:59 FINDINGS: Liver: Normal. No mass. Gallbladder and bile ducts: Normal. No calcified stones. No ductal dilation. Pancreas: Normal. No ductal dilation. Spleen: Normal. No splenomegaly. Adrenals: Normal. No mass. Kidneys and ureters: Normal. No hydronephrosis. Stomach and bowel: Gastric wall thickening and mucosal enhancement, correlate for gastritis. Moderate diverticulosis coli. Appendix: No evidence of appendicitis. Intraperitoneal space: Unremarkable. No free air. No significant fluid collection. Vasculature: Unremarkable. No abdominal aortic aneurysm. Lymph nodes: Unremarkable. No enlarged lymph nodes. Bladder: Unremarkable as visualized. Reproductive: Unremarkable as visualized. Bones/joints: Bilateral hip arthroplasty hardware. Old healed right pelvic fractures. Severe lower lumbar spinal stenosis. Soft tissues: Small ventral abdominal wall fat protruding hernias. IMPRESSION: 1. Gastric wall thickening and mucosal enhancement, correlate for gastritis. 2. Moderate diverticulosis coli. Electronically signed by: Aries Sorensen On 03/28/2020 22:16:02 PM
[2020-03-28 23:35] VITALS: BP 142/72
--- NOTE | 2020-03-31 08:06 | ED PDOC ---
Post-Departure Follow-Up dr arellano faxed formal report of ct abd/p for fu Sofia Rangel MD Mar 31, 2020 08:06
== END 2020-03-28 23:51 | disposition home or self-care (01) ==
LOC: M ED 19:37
DX: R10.84 Generalized abdominal pain (principal); R19.7 Diarrhea, unspecified; I10 Essential (primary) hypertension; Z88.1 Allergy status to other antibiotic agents; Z79.899 Other long term (current) drug therapy
CPT/HCPCS: 74177; 80047; 80076; 81001; 83690; 85025; 99284; Q9967

== ENCOUNTER → 2020-03-29 | Outpatient (REF) | payer MEDICARE, BC, OTHER ==
[~2020-03-29] MED LIST changes: +COQ-100C5 PO; +METO1TAB32 PO; +TURM500C5 PO
== END ==
LOC: M LAB REF 10:27
PROVIDERS: ATTEND Physician Assistant
DX: Z01.89 Encounter for other specified special examinations (principal)

== ENCOUNTER → 2021-04-24 | Outpatient (CLI) | payer MEDICARE, BC, OTHER ==
[~2021-04-24] MED LIST changes: +ISOVUE-370 76% 100ML VIAL As Ordered ONE
--- NOTE | 2021-04-24 16:48 | REP ---
INDICATION: ABN WEIGHT LOSS, ABD PAIN. COMPARISON: Multiple the latest 03/28/2020 TECHNIQUE: Standard helical technique after intravenous contrast administration 100 cc Isovue 370. FINDINGS: The lung bases are unchanged The liver, gallbladder, spleen, pancreas, adrenal glands, and kidneys are unchanged. The abdominal aorta and para-aortic regions are unchanged. The bowel loops and the mesenteries are unchanged. There is no free fluid or free air. There is no evidence of a mass or adenopathy. [place] artifact is again seen arising from the hip prosthesis bilaterally obscuring the pelvis. There is no significant change in the osseous structures. IMPRESSION: There is no evidence of significant change compared to the prior exam. There is evidence of a small hiatal hernia status quo. CT cannot effectively evaluate the distal esophagus. <Electronically signed by Jose Roberto Gutierrez > 04/24/21 [id number]
== END ==
LOC: M RAD 15:24
PROVIDERS: ATTEND Nurse Practitioner Family
DX: R63.4 Abnormal weight loss (principal); R10.10 Upper abdominal pain, unspecified
CPT/HCPCS: 74177; Q9967

== ENCOUNTER → 2023-09-16 | Outpatient (CLI) | payer MEDICARE, BC, OTHER ==
[~2023-09-16] MED LIST changes: -ISOVUE-370 76% 100ML VIAL As Ordered ONE; -TRIA37.53 PO; +TRIA37.577 PO
== END ==
LOC: M PLARAD 13:04
PROVIDERS: ATTEND Physical Medicine & Rehabilitation
DX: S32.050A Wedge compression fracture of fifth lumbar vertebra, initial encounter for closed fracture (principal); M48.061 Spinal stenosis, lumbar region without neurogenic claudication; M51.24 Other intervertebral disc displacement, thoracic region; Y93.9 Activity, unspecified; Y92.9 Unspecified place or not applicable

== ENCOUNTER → 2025-02-27 | Outpatient (CLI) | payer MEDICARE, BC | LOC: M RAD 09:31 | PROVIDERS: ATTEND Family Medicine | DX: I71.40 Abdominal aortic aneurysm, without rupture, unspecified (principal) ==

== ENCOUNTER 2025-04-24 16:23 | Inpatient (IN) | payer MEDICARE, BC ==
[~2025-04-24] VITALS: Ht 165.1 cm; Wt 65.4 kg
[2025-04-24] MEDS ORDERED: ISOVUE-370 76% 100 ML VIAL As Ordered ONE (17:08)
[2025-04-24 17:23] LABS: BASO # 0.0 10^3/uL (0.0-0.2); BASO % 0.1 % (0.0-1.0); EOS # 0.0 10^3/uL (0.0-0.5); EOS % 0.0 % (0.0-3.0); LYMPH # 1.6 10^3/uL (1.5-5.0); LYMPH % 11.2 % (24.0-44.0); MONO # 1.0 10^3/uL (0.0-0.8); MONO % 6.8 % (2.0-8.0); NEUTROPHILS # 11.5 10^3/uL (1.5-8.5); NEUTROPHILS % 81.6 % (36.0-66.0); PLATELET COUNT, AUTOMATED 257 10^3/uL (150-450)
[2025-04-24 17:43] LABS: ALT/SGPT 64.0 U/L (7.0-40); AST/SGOT 152.0 U/L (<34)
[2025-04-24 17:45] LABS: INR 1.1
[2025-04-24 17:57] LABS: CPK CREATINE PHOSPHOKINASE 1741.0 U/L (34-145)
[2025-04-24] MEDS: NS 500 ML IV ONE (18:00)
[2025-04-24] MEDS: NS (Normal Saline) 0.9% 1,000 ML IV SCH (18:30)
[2025-04-24] MEDS ORDERED: HOME MED LIST COMPLETE! XX SCH (20:15)
[2025-04-24] MEDS ORDERED: MOM 30 ML SUSPENSION UDC PO PRN (22:00)
[2025-04-24 22:44] LABS: APPEARANCE, URINE CLEAR (CLEAR); BACTERIA, URINE AUTO NEGATIVE (NEGATIVE); BILIRUBIN, URINE AUTO NEGATIVE (NEGATIVE); BLOOD, URINE BLOOD 2+ (NEGATIVE); GLUCOSE, URINE (UA) AUTO NEGATIVE (NEGATIVE); KETONE, URINE AUTO 1+ mg/dL (NEGATIVE); LEUKOCYTE ESTERASE, URINE AUTO 2+ (NEGATIVE); NITRITE, URINE AUTO NEGATIVE (NEGATIVE); PROTEIN, URINE AUTO 2+ mg/dL (NEGATIVE); RBC, URINE AUTO 8 /HPF (0-3); SPECIFIC GRAVITY URINE AUTO >1.060 (1.002-1.035); SQUAMOUS EPITHELIAL CELL UR AU 3 /HPF (0-6); UROBILINOGEN, URINE AUTO 0.2 mg/dL (0.0-2.0); WBC, URINE AUTO 13 /HPF (0-3)
[2025-04-24] MEDS: DOCUSATE SODIUM 100 MG CAPSULE PO SCH (23:35)
[2025-04-25] VITALS (54 sets, daily range): BP systolic 89–126; BP diastolic 51–84; TEMP 97.5–101.2; O2SAT 91–100
[2025-04-25] MEDS ORDERED: KETOROLAC 30 MG/ML 1 ML VIAL IV PRN (00:45)
[2025-04-25 05:38] LABS: BASO # 0.0 10^3/uL (0.0-0.2); BASO % 0.2 % (0.0-1.0); EOS # 0.0 10^3/uL (0.0-0.5); EOS % 0.0 % (0.0-3.0); LYMPH # 1.5 10^3/uL (1.5-5.0); LYMPH % 11.8 % (24.0-44.0); MONO # 1.1 10^3/uL (0.0-0.8); MONO % 9.1 % (2.0-8.0); NEUTROPHILS # 9.9 10^3/uL (1.5-8.5); NEUTROPHILS % 78.4 % (36.0-66.0); PLATELET COUNT, AUTOMATED 212 10^3/uL (150-450)
[2025-04-25 05:56] LABS: CALCIUM LEVEL 9.0 MG/DL (8.3-10.6); CARBON DIOXIDE LEVEL 23.0 MMOL/L (20-31); CHLORIDE LEVEL 107.0 MMOL/L (98-107); CREATININE FOR GFR 0.88 MG/DL (0.55-1.30); GLOMERULAR FILTRATION RATE 65.2 (>32); POTASSIUM SERUM 3.4 MMOL/L (3.5-5.1); SODIUM LEVEL 148.0 MMOL/L (136-145)
[2025-04-25] MEDS: LR 1,000 ML IV SCH ×2 (06:00→08:39)
[2025-04-25] MEDS: METOPROLOL SUCC *XL* 12.5 MG PER 1/2 TAB PO SCH (06:02)
[2025-04-25 06:18] LABS: ALT/SGPT 61.0 U/L (7.0-40); AST/SGOT 129.0 U/L (<34); MAGNESIUM LEVEL 2.3 MG/DL (1.8-2.4)
[2025-04-25] MEDS ORDERED: METOPROLOL 5 MG/5 ML VIAL As Ordered ONE (06:50)
[2025-04-25] MEDS: METOPROLOL 5 MG/5 ML VIAL IV SCH (06:51)
[2025-04-25] MEDS ORDERED: AMIODARONE HCL 150 MG/100 ML PREMIXED BAG As Ordered ONE (06:57)
[2025-04-25 07:19] LABS: VENOUS BASE EXCESS -0.8 (-2.0-2.0); VENOUS HCO3 25.0 MMOL/L (23.0-27.0); VENOUS PARTIAL PRESSURE CO2 45.5 mmHg (38.0-50.0); VENOUS PARTIAL PRESSURE O2 34.2 mmHg (30.0-50.0); VENOUS PH 7.358 UNITS (7.330-7.430); VENOUS STANDARD HCO3 22.9 MMOL/L; VENOUS TOTAL CO2 26.4 MMOL/L (24.0-28.0)
[2025-04-25] MEDS: KCL 10MEQ/100ML SWI (KRUN) 10 MEQ in IV 1 EA IV SCH (07:31)
[2025-04-25] MEDS: SODIUM BICARBONATE 8.4% INJ 50ML SYRINGE IV STA (07:32)
[2025-04-25] MEDS: SODIUM BICARBONATE 4.2% INJ 10ML SYRINGE IV STA (07:32)
[2025-04-25] MEDS: AMIODARONE HCL 150 MG in IV 1 EA IV SCH (07:32)
[2025-04-25] MEDS: DEXTROSE 50% 50 ML SYRINGE IV STA (07:33)
[2025-04-25] MEDS: POTASSIUM CHLORIDE 10MEQ SR TABLET PO ONE (07:33)
[2025-04-25] MEDS: ACETAMINOPHEN 325 MG TAB PO ONE (07:33)
[2025-04-25] MEDS: OMEPRAZOLE 20MG CAP PO SCH (07:34)
[2025-04-25] MEDS: ACETAMINOPHEN 500 MG TAB PO SCH (07:34)
[2025-04-25 07:39] LABS: PLATELET COUNT, AUTOMATED 235 10^3/uL (150-450)
[2025-04-25] MEDS: AMIODARONE HCL 360 MG in IV 1 EA IV SCH (07:40)
[2025-04-25 07:56] LABS: INR 1.11
[2025-04-25 08:13] LABS: ALT/SGPT 67.0 U/L (7.0-40); AST/SGOT 140.0 U/L (<34); CALCIUM LEVEL 9.4 MG/DL (8.3-10.6); CARBON DIOXIDE LEVEL 26.0 MMOL/L (20-31); CHLORIDE LEVEL 105.0 MMOL/L (98-107); CK-MB VALUE MASS 25.7 NG/ML (<3.6); CREATININE FOR GFR 0.98 MG/DL (0.55-1.30); GLOMERULAR FILTRATION RATE 57.3 (>32); PHOSPHORUS LEVEL 3.0 MG/DL (2.4-5.1); POTASSIUM SERUM 3.6 MMOL/L (3.5-5.1); SODIUM LEVEL 145.0 MMOL/L (136-145)
[2025-04-25 08:32] LABS: CPK CREATINE PHOSPHOKINASE 1402.0 U/L (34-145); MB/CK RELATIVE INDEX 1.83 (< OR =4)
[2025-04-25] MEDS: ENOXAPARIN 40 MG/0.4 ML SYRINGE (J1650 PER 10MG) SC SCH (09:24)
[2025-04-25 14:54] LABS: VENOUS O2 SATURATION 62.9 % (60.0-80.0)
[2025-04-25 17:51] LABS: ESTIMATED AVERAGE GLUCOSE 103.0 MG/DL (60-110)
[2025-04-25] MEDS: APIXABAN 5 MG TAB PO SCH (20:44)
[2025-04-25] MEDS ORDERED: ENOXAPARIN 60 MG/0.6 ML SYRINGE (J1650 PER 10MG) SC SCH (21:00)
[2025-04-26] VITALS (39 sets, daily range): BP systolic 92–151; BP diastolic 51–86; TEMP 97.2–98.9; O2SAT 92–100
[2025-04-26] MEDS ORDERED: DIGOXIN INJ 0.5 MG/2 ML AMP IV PRN
[2025-04-26] MEDS: METOPROLOL TART 12.5 MG PER 1/2 TAB PO SCH (00:31)
[2025-04-26 05:03] LABS: BASO # 0.0 10^3/uL (0.0-0.2); BASO % 0.2 % (0.0-1.0); EOS # 0.0 10^3/uL (0.0-0.5); EOS % 0.4 % (0.0-3.0); LYMPH # 1.6 10^3/uL (1.5-5.0); LYMPH % 14.8 % (24.0-44.0); MONO # 1.1 10^3/uL (0.0-0.8); MONO % 9.9 % (2.0-8.0); NEUTROPHILS # 8.0 10^3/uL (1.5-8.5); NEUTROPHILS % 74.2 % (36.0-66.0); PLATELET COUNT, AUTOMATED 192 10^3/uL (150-450)
[2025-04-26 05:12] LABS: CALCIUM LEVEL 8.7 MG/DL (8.3-10.6); CARBON DIOXIDE LEVEL 28.0 MMOL/L (20-31); CHLORIDE LEVEL 105.0 MMOL/L (98-107); CREATININE FOR GFR 0.74 MG/DL (0.55-1.30); GLOMERULAR FILTRATION RATE 80.2 (>32); MAGNESIUM LEVEL 2.2 MG/DL (1.8-2.4); PHOSPHORUS LEVEL 2.2 MG/DL (2.4-5.1); POTASSIUM SERUM 3.7 MMOL/L (3.5-5.1); SODIUM LEVEL 144.0 MMOL/L (136-145)
[2025-04-26] MEDS: LR 1,000 ML IV ONE ×3 (08:24→16:11)
[2025-04-26] MEDS: ASPIRIN 81 MG CHEWABLE TABLET PO SCH (08:54)
[2025-04-26] MEDS: DIGOXIN INJ 0.5 MG/2 ML AMP IV ONE (08:55)
[2025-04-26] MEDS ORDERED: DIGOXIN 0.125 MG TAB PO SCH (09:00)
[2025-04-26] MEDS ORDERED: METOPROLOL TART 25 MG TABLET PO SCH (09:00)
[2025-04-26 09:31] LABS: INR 1.3
[2025-04-26 09:36] LABS: CHOLESTEROL LEVEL 155.0 MG/DL (<200); CHOLESTEROL RISK RATIO 1.92 (<5); LDL CHOLESTEROL 53.2 MG/DL (<100); NON-HDL-C 74.4 MG/DL; TRIGLYCERIDES LEVEL 106.0 MG/DL (<150)
[2025-04-26] MEDS: LR 1,000 ML IV SCH (10:37)
[2025-04-26] MEDS ORDERED: GLUCAGON INJ 1 MG VIAL SC PRN (10:50)
[2025-04-26] MEDS ORDERED: GLUCOSE 4 GM CHEW PO PRN (10:50)
[2025-04-26] MEDS ORDERED: DEXTROSE 50% 50 ML SYRINGE IV PRN (10:50)
[2025-04-26 11:33] LABS: PROLACTIN 13.69 NG/ML
[2025-04-26] MEDS ORDERED: LR 1,000 ML IV ONE ×2 (15:45)
[2025-04-26] MEDS ORDERED: NS (Normal Saline) 0.9% 1,000 ML IV ONE (15:55)
[2025-04-26] MEDS: VASOPRESSIN IN 0.9 % NACL 20 UNIT in IV 1 EA IV SCH (17:45)
[2025-04-26] MEDS ORDERED: PHENYLEPHRINE HCL INJ 50 MG in D5W 495 ML IV SCH (17:55)
[2025-04-26] MEDS: SODIUM PHOSPHATE INJ 30 MMOL in D5W 500 ML IV ONE (19:05)
[2025-04-26] MEDS ORDERED: NS 500 ML IV PRN (19:05)
[2025-04-26] MEDS: ATORVASTATIN 20 MG TAB PO SCH (21:00)
[2025-04-26] MEDS: ENOXAPARIN 60 MG/0.6 ML SYRINGE (J1650 PER 10MG) SC SCH (21:30)
[2025-04-27] VITALS (99 sets, daily range): BP systolic 97–156; BP diastolic 53–110; TEMP 97.1–100.3; O2SAT 90–99
[2025-04-27] MEDS: ACETAMINOPHEN *IV* 1,000 MG in IV 1 EA IV ONE (03:16)
[2025-04-27 04:37] LABS: BASO # 0.0 10^3/uL (0.0-0.2); BASO % 0.1 % (0.0-1.0); EOS # 0.0 10^3/uL (0.0-0.5); EOS % 0.1 % (0.0-3.0); LYMPH # 1.4 10^3/uL (1.5-5.0); LYMPH % 15.0 % (24.0-44.0); MONO # 0.8 10^3/uL (0.0-0.8); MONO % 8.5 % (2.0-8.0); NEUTROPHILS # 7.0 10^3/uL (1.5-8.5); NEUTROPHILS % 76.0 % (36.0-66.0); PLATELET COUNT, AUTOMATED 157 10^3/uL (150-450)
[2025-04-27 04:57] LABS: DIGOXIN LEVEL 0.2 NG/ML (0.8-2.0)
[2025-04-27 04:58] LABS: CALCIUM LEVEL 7.6 MG/DL (8.3-10.6); CARBON DIOXIDE LEVEL 26.0 MMOL/L (20-31); CHLORIDE LEVEL 105.0 MMOL/L (98-107); CREATININE FOR GFR 0.71 MG/DL (0.55-1.30); GLOMERULAR FILTRATION RATE 84.3 (>32); POTASSIUM SERUM 4.0 MMOL/L (3.5-5.1); SODIUM LEVEL 144.0 MMOL/L (136-145)
[2025-04-27] MEDS: cefTRIAXone SOD 1 GM in DEXTROSE 5% (D5W) ADV/MINI-BAG 50 ML IV SCH (08:48)
[2025-04-27] MEDS: CALCIUM GLUCONATE 1,000 MG in DEXTROSE 5% (D5W) MINI-BAG PLU 100 ML IV ONE (09:48)
[2025-04-27] MEDS: PANTOPRAZOLE 40MG VIAL IV SCH (09:48)
[2025-04-27 09:51] LABS: DRVV SCREEN 62.8 SECONDS; PTT LUPUS TYPE ANTICOAG SCREEN 1.65 (0-1.20)
[2025-04-27 09:59] LABS: DRVV CONFIRM 62.2 SECONDS; LUPUS CONFIRM RATIO 1.7; NORMALIZED RATIO 0.97 (0.00-1.20)
[2025-04-27] MEDS: LR 1,000 ML IV SCH (12:35)
[2025-04-27] MEDS: NS 500 ML IV ONE (13:32)
[2025-04-28] VITALS (47 sets, daily range): BP systolic 117–163; BP diastolic 61–95; TEMP 97.6–98.8; O2SAT 87–97
[2025-04-28 04:35] LABS: BASO # 0.0 10^3/uL (0.0-0.2); BASO % 0.2 % (0.0-1.0); EOS # 0.0 10^3/uL (0.0-0.5); EOS % 0.5 % (0.0-3.0); LYMPH # 1.8 10^3/uL (1.5-5.0); LYMPH % 20.3 % (24.0-44.0); MONO # 0.8 10^3/uL (0.0-0.8); MONO % 9.0 % (2.0-8.0); NEUTROPHILS # 6.2 10^3/uL (1.5-8.5); NEUTROPHILS % 69.7 % (36.0-66.0); PLATELET COUNT, AUTOMATED 170 10^3/uL (150-450)
[2025-04-28 05:03] LABS: CALCIUM LEVEL 8.1 MG/DL (8.3-10.6); CARBON DIOXIDE LEVEL 25.0 MMOL/L (20-31); CHLORIDE LEVEL 103.0 MMOL/L (98-107); CREATININE FOR GFR 0.64 MG/DL (0.55-1.30); GLOMERULAR FILTRATION RATE 87.6 (>32); POTASSIUM SERUM 3.4 MMOL/L (3.5-5.1); SODIUM LEVEL 141.0 MMOL/L (136-145)
[2025-04-28] MEDS: POTASSIUM CHLORIDE 10% LIQ 20MEQ/15ML UDC PO ONE (09:23)
[2025-04-28] MEDS: METOPROLOL TART 12.5 MG PER 1/2 TAB PO SCH (10:18)
[2025-04-28] MEDS: KCL 10MEQ/100ML SWI (KRUN) 10 MEQ in IV 1 EA IV SCH (10:19)
[2025-04-28] MEDS: NS 500 ML IV ONE (17:07)
[2025-04-28] MEDS: APIXABAN 5 MG TAB PO SCH (20:08)
[2025-04-29 04:22] VITALS: BP 170/88; TEMP 97.5; O2SAT 96
[2025-04-29] MEDS: ACETAMINOPHEN *IV* 1,000 MG in IV 1 EA IV ONE (04:38)
[2025-04-29 05:18] VITALS: BP 140/74
[2025-04-29 05:59] LABS: BASO # 0.0 10^3/uL (0.0-0.2); BASO % 0.1 % (0.0-1.0); EOS # 0.0 10^3/uL (0.0-0.5); EOS % 0.4 % (0.0-3.0); LYMPH # 1.4 10^3/uL (1.5-5.0); LYMPH % 13.0 % (24.0-44.0); MONO # 0.9 10^3/uL (0.0-0.8); MONO % 8.5 % (2.0-8.0); NEUTROPHILS # 8.2 10^3/uL (1.5-8.5); NEUTROPHILS % 77.4 % (36.0-66.0); PLATELET COUNT, AUTOMATED 199 10^3/uL (150-450)
[2025-04-29 06:24] LABS: CALCIUM LEVEL 8.0 MG/DL (8.3-10.6); CARBON DIOXIDE LEVEL 28.0 MMOL/L (20-31); CHLORIDE LEVEL 104.0 MMOL/L (98-107); CREATININE FOR GFR 0.72 MG/DL (0.55-1.30); GLOMERULAR FILTRATION RATE 82.9 (>32); POTASSIUM SERUM 3.3 MMOL/L (3.5-5.1); SODIUM LEVEL 144.0 MMOL/L (136-145)
[2025-04-29] MEDS ORDERED: FUROSEMIDE 20 MG/2 ML VIAL IV ONE (07:30)
[2025-04-29 07:47] LABS: ALT/SGPT 47.0 U/L (7.0-40); AST/SGOT 59.0 U/L (<34); C REACTIVE PROTEIN QUANTITATIV 8.14 MG/DL (<1.0)
[2025-04-29] MEDS: PANTOPRAZOLE 40MG TAB PO SCH (09:25)
[2025-04-29] MEDS: POTASSIUM CHLORIDE 10MEQ SR TABLET PO SCH (09:26)
[2025-04-29] MEDS: POTASSIUM CHLORIDE 10MEQ SR TABLET PO ONE (11:51)
[2025-04-29] MEDS: FUROSEMIDE 20 MG/2 ML VIAL IV ONE (11:52)
[2025-04-29 12:00] VITALS: BP 124/72; TEMP 97.5; O2SAT 97
[2025-04-29 12:43] LABS: CARDIOLIPIN IGA ANTIBODY < 2.0 APL-U/mL (<20.0); CARDIOLIPIN IGG ANTIBODY < 2.0 GPL-U/mL (<20.0); CARDIOLIPIN IGM ANTIBODY 2.2 MPL-U/mL (<20.0)
[2025-04-29 17:08] LABS: SSA SJOGRENS A <1.0 NEG AI (<1.0 NEG); SSB SJOGRENS B <1.0 NEG AI (<1.0 NEG)
[2025-04-29 17:37] LABS: HOMOCYST(E)INE SERUM 10.2 umol/L (< or = 13.4)
[2025-04-29 21:01] VITALS: BP 145/84; TEMP 97.9; O2SAT 99
[2025-04-29 23:52] LABS: CK-MB VALUE MASS 3.0 NG/ML (<3.6)
[2025-04-29 23:54] LABS: CPK CREATINE PHOSPHOKINASE 92.0 U/L (34-145); MB/CK RELATIVE INDEX 3.26 (< OR =4)
[2025-04-30 00:01] LABS: CALCIUM LEVEL 7.6 MG/DL (8.3-10.6); CARBON DIOXIDE LEVEL 27.0 MMOL/L (20-31); CHLORIDE LEVEL 102.0 MMOL/L (98-107); CREATININE FOR GFR 0.66 MG/DL (0.55-1.30); GLOMERULAR FILTRATION RATE 87.0 (>32); MAGNESIUM LEVEL 1.7 MG/DL (1.8-2.4); POTASSIUM SERUM 3.3 MMOL/L (3.5-5.1); SODIUM LEVEL 140.0 MMOL/L (136-145)
[2025-04-30] MEDS: POTASSIUM CHLORIDE 10MEQ SR TABLET PO SCH (00:37)
[2025-04-30] MEDS: MAGNESIUM OXIDE 400 MG TAB PO ONE (01:05)
[2025-04-30] MEDS: MAG SULF 1GM/100ML (MAG RUN) 1 GM in IV 1 EA IV ONE (01:30)
[2025-04-30 04:07] VITALS: BP 138/78; TEMP 97.2; O2SAT 100
[2025-04-30 05:51] LABS: IONIZED CALCIUM 4.3 MG/DL (4.5-5.3)
[2025-04-30 06:03] LABS: BASO # 0.0 10^3/uL (0.0-0.2); BASO % 0.3 % (0.0-1.0); EOS # 0.2 10^3/uL (0.0-0.5); EOS % 2.0 % (0.0-3.0); LYMPH # 2.1 10^3/uL (1.5-5.0); LYMPH % 20.8 % (24.0-44.0); MONO # 1.0 10^3/uL (0.0-0.8); MONO % 10.2 % (2.0-8.0); NEUTROPHILS # 6.7 10^3/uL (1.5-8.5); NEUTROPHILS % 66.2 % (36.0-66.0); PLATELET COUNT, AUTOMATED 223 10^3/uL (150-450)
[2025-04-30 06:35] LABS: CALCIUM LEVEL 7.8 MG/DL (8.3-10.6); CARBON DIOXIDE LEVEL 30.0 MMOL/L (20-31); CHLORIDE LEVEL 102.0 MMOL/L (98-107); CREATININE FOR GFR 0.77 MG/DL (0.55-1.30); GLOMERULAR FILTRATION RATE 76.5 (>32); MAGNESIUM LEVEL 2.0 MG/DL (1.8-2.4); POTASSIUM SERUM 3.3 MMOL/L (3.5-5.1); SODIUM LEVEL 143.0 MMOL/L (136-145)
[2025-04-30 08:34] VITALS: BP 138/81; TEMP 97.7; O2SAT 99
[2025-04-30 10:45] VITALS: O2SAT 98
[2025-04-30 11:13] VITALS: O2SAT 96
[2025-04-30 12:26] LABS: IONIZED CALCIUM 4.4 MG/DL (4.5-5.3)
[2025-04-30 12:52] LABS: PROTEIN S ANTIGEN FREE 94 % normal (50-147); PROTEIN S ANTIGEN TOTAL 108 % normal (70-140)
[2025-04-30 13:04] LABS: CK-MB VALUE MASS 3.2 NG/ML (<3.6)
[2025-04-30 13:05] LABS: CALCIUM LEVEL 7.7 MG/DL (8.3-10.6); CARBON DIOXIDE LEVEL 29.0 MMOL/L (20-31); CHLORIDE LEVEL 101.0 MMOL/L (98-107); CPK CREATINE PHOSPHOKINASE 94.0 U/L (34-145); CREATININE FOR GFR 0.71 MG/DL (0.55-1.30); GLOMERULAR FILTRATION RATE 84.3 (>32); MAGNESIUM LEVEL 1.9 MG/DL (1.8-2.4); MB/CK RELATIVE INDEX 3.4 (< OR =4); POTASSIUM SERUM 3.4 MMOL/L (3.5-5.1); SODIUM LEVEL 141.0 MMOL/L (136-145)
[2025-04-30 14:32] LABS: ANA PATTERN 2 Nuclear, Speckled; ANA TITER 2 1:40 titer (NEGATIVE)
[2025-04-30 19:34] VITALS: BP 150/82; TEMP 97.5; O2SAT 97
[2025-05-01 04:01] VITALS: BP 142/76; TEMP 97.5; O2SAT 92
[2025-05-01 06:35] LABS: BASO # 0.1 10^3/uL (0.0-0.2); BASO % 0.5 % (0.0-1.0); EOS # 0.3 10^3/uL (0.0-0.5); EOS % 3.2 % (0.0-3.0); LYMPH # 2.7 10^3/uL (1.5-5.0); LYMPH % 25.8 % (24.0-44.0); MONO # 1.0 10^3/uL (0.0-0.8); MONO % 9.4 % (2.0-8.0); NEUTROPHILS # 6.3 10^3/uL (1.5-8.5); NEUTROPHILS % 60.5 % (36.0-66.0); PLATELET COUNT, AUTOMATED 275 10^3/uL (150-450)
[2025-05-01 07:04] LABS: CALCIUM LEVEL 7.8 MG/DL (8.3-10.6); CARBON DIOXIDE LEVEL 28.0 MMOL/L (20-31); CHLORIDE LEVEL 104.0 MMOL/L (98-107); CREATININE FOR GFR 0.66 MG/DL (0.55-1.30); GLOMERULAR FILTRATION RATE 87.0 (>32); MAGNESIUM LEVEL 2.0 MG/DL (1.8-2.4); POTASSIUM SERUM 3.9 MMOL/L (3.5-5.1); SODIUM LEVEL 142.0 MMOL/L (136-145)
[2025-05-01] MEDS: CALCIUM GLUCONATE 1,000 MG in DEXTROSE 5% (D5W) MINI-BAG PLU 100 ML IV ONE (08:11)
[2025-05-01] MEDS: CALCIUM CARBONATE 500 MG CHEW U/D PO SCH (08:11)
[2025-05-01 15:52] LABS: PROTEIN C ANTIGEN 81 % normal (70-140)
[2025-05-01 19:34] VITALS: BP 151/87; TEMP 97.7; O2SAT 96
[2025-05-02 20:28] VITALS: BP 165/92; TEMP 98.1; O2SAT 97
[2025-05-02 23:47] LABS: ANTI THROMBIN 3 ANTIGEN IMMUNO 83 % normal (80-120); ANTI THROMBIN 3 FUNCT ACTIVITY 103 % normal (80-135)
[2025-05-03] MEDS ORDERED: METO1TAB87 PO (07:39)
[2025-05-03] MEDS ORDERED: ACET-683 PO (07:39)
[2025-05-03] MEDS ORDERED: ATOR1TAB21 PO (07:39)
[2025-05-03] MEDS ORDERED: PANT40TA29 PO (07:39)
[2025-05-03] MEDS ORDERED: ASPI81CH8 PO (07:39)
[2025-05-03] MEDS ORDERED: ELIQ5TAB PO (07:39)
[2025-05-03 08:00] VITALS: BP 167/92
[2025-05-03 14:32] LABS: FACTOR II PROTHROMBIN GENE AN NEGATIVE
[2025-05-03 20:46] LABS: FACTOR V LEIDEN FOR MEDINET NEGATIVE
== END 2025-05-03 11:08 | DRG 557 ==
LOC: EDBD 16:23 → M ED 16:23 → M ED INP 21:57 → M MSPAV 04-25 00:23 → M ICU 04-25 06:10 → M MSPAV 04-28 23:15
PROVIDERS: ADMIT Internal Medicine Nephrology; ATTEND General Practice
PROC: B246ZZZ Ultrasonography of Right and Left Heart (ICD-10-PCS; principal; 2025-04-26)
DX: M62.82 Rhabdomyolysis (principal); G93.41 Metabolic encephalopathy; I63.443 Cerebral infarction due to embolism of bilateral cerebellar arteries; J96.01 Acute respiratory failure with hypoxia; I21.A1 Myocardial infarction type 2; L89.153 Pressure ulcer of sacral region, stage 3; M48.56XA Collapsed vertebra, not elsewhere classified, lumbar region, initial encounter for fracture; G81.94 Hemiplegia, unspecified affecting left nondominant side; N39.0 Urinary tract infection, site not specified; G43.909 Migraine, unspecified, not intractable, without status migrainosus; I10 Essential (primary) hypertension; M48.061 Spinal stenosis, lumbar region without neurogenic claudication; H04.123 Dry eye syndrome of bilateral lacrimal glands; E87.6 Hypokalemia; R94.5 Abnormal results of liver function studies; L89.626 Pressure-induced deep tissue damage of left heel; L89.111 Pressure ulcer of right upper back, stage 1; I27.20 Pulmonary hypertension, unspecified; I35.2 Nonrheumatic aortic (valve) stenosis with insufficiency; I48.0 Paroxysmal atrial fibrillation; E83.39 Other disorders of phosphorus metabolism; R74.01 Elevation of levels of liver transaminase levels; R10.32 Left lower quadrant pain; M62.838 Other muscle spasm; I95.1 Orthostatic hypotension; B96.20 Unspecified Escherichia coli [E. coli] as the cause of diseases classified elsewhere; R13.10 Dysphagia, unspecified; E87.70 Fluid overload, unspecified; D51.0 Vitamin B12 deficiency anemia due to intrinsic factor deficiency; E86.0 Dehydration; Z79.01 Long term (current) use of anticoagulants; Z79.899 Other long term (current) drug therapy; Z96.643 Presence of artificial hip joint, bilateral; Z90.49 Acquired absence of other specified parts of digestive tract; Z88.1 Allergy status to other antibiotic agents; Z95.3 Presence of xenogenic heart valve